=== PATIENT | male | born 1940 | race Caucasian/White ===

== ENCOUNTER 2020-06-21 12:49 | Outpatient (CLI) | payer OTHER ==
[~2020-06-21 12:49] MED LIST: ASPI81TA52 PO; ATOR-2 PO; CARV6.253 PO; CLOP75TA34 PO; LOSA50TA64 PO; PANT40TA54 PO
== END 2020-06-21 23:59 | disposition home or self-care (01) ==
LOC: RAD 12:49
PROVIDERS: ATTEND Family Medicine
DX: R13.10 Dysphagia, unspecified (principal); R47.1 Dysarthria and anarthria
CPT/HCPCS: 74230